=== PATIENT | female | born 1985 | race Caucasian/White ===

== ENCOUNTER 2017-01-14 22:53 | Emergency (ER) | payer MEDICAID ==
[~2017-01-14] VITALS: Ht 162.6 cm; Wt 86.4 kg
[2017-01-14 22:57] VITALS: TEMP 98.1
[2017-01-14] MEDS ORDERED: PRENATAL1 TA7 PO (23:00)
[2017-01-15] MEDS ORDERED: CEPHALEXIN500 M1 PO (01:55)
[2017-01-15 02:24] VITALS: BP 149/90; PULSE 72
== END 2017-01-15 02:24 | disposition home or self-care (01) ==
LOC: COL.ER 22:53
DX: O9A.213 Injury, poisoning and certain other consequences of external causes complicating pregnancy, third trimester (principal); S81.821A Laceration with foreign body, right lower leg, initial encounter; W22.8XXA Striking against or struck by other objects, initial encounter; Y92.830 Public park as the place of occurrence of the external cause; Z3A.36 36 weeks gestation of pregnancy
CPT/HCPCS: J0690

== ENCOUNTER 2017-01-30 22:50 | Inpatient (IN) | payer MEDICAID ==
[~2017-01-30] VITALS: Ht 162.6 cm; Wt 90.5 kg
[~2017-01-30 22:50] MED LIST: CEPHALEXIN500 M1 PO; PRENATAL1 TA7 PO
[2017-01-30 22:57] VITALS: TEMP 97.6
[2017-01-30 23:00] VITALS: BP 148/94; PULSE 66; TEMP 97.6
[2017-01-30 23:15] VITALS: BP 186/88; PULSE 56
[2017-01-30 23:30] VITALS: BP 134/85; PULSE 63
[2017-01-30 23:45] VITALS: BP 157/86; PULSE 59
[2017-01-31] VITALS (17 sets, daily range): BP systolic 120–170; BP diastolic 60–88; PULSE 57–105; TEMP 97.2–98.7
[2017-01-31 00:27] LABS: BASO # 0.1 (0.0-0.2); BASO % 0.4 % (0.0-2.0); EOS # 0.1 (0.0-0.7); EOS % 0.7 % (0-4.0); GRAN # 10.2 (1.4-6.5); GRAN % 79.5 % (42.2-75.2); HEMOGLOBIN 12.2 g/dl (12.5-16.0); LYMPH # 1.9 (1.2-3.4); LYMPH % 14.7 % (20.0-51.0); MEAN CELL VOLUME 87 fl (80.0-100.0); MEAN CORPUSCULAR HEMOGLOBIN 31 pg (27.0-31.0); MEAN CORPUSCULAR HGB CONC 36 g/dl (33.0-37.0); MEAN PLATELET VOLUME 10.6 fl (7.4-10.4); MONO # 0.5 (0.1-0.6); MONO % 4.1 % (1.7-9.3); PLATELET COUNT 176 K/mm3 (130-400); RED BLOOD COUNT 3.88 M/mm3 (4.10-5.30); REDCELL DISTRIBUTION WIDTH-CV 12.5 % (11.5-14.5); WHITE BLOOD COUNT 12.8 K/mm3 (4.8-10.8)
[2017-01-31 00:30] LABS: HEMATOCRIT 33.8 % (37.0-47.0)
[2017-01-31 00:36] LABS: ADJUSTED CALCIUM 9.9 mg/dL (8.4-10.2); ALBUMIN 3.6 gm/dL (3.5-5.0); BILIRUBIN,TOTAL 0.5 mg/dL (0.0-1.0); CALCIUM 9.6 mg/dL (8.4-10.2); CREATININE, serum 0.76 mg/dL (0.52-1.25); POTASSIUM 3.7 mmol/L (3.4-5.0); TOTAL PROTEIN 6.8 gm/dL (6.4-8.2)
[2017-01-31] MEDS ORDERED: MOTRIN 800800 MG/TAB PO (10:34)
[2017-02-01 09:30] VITALS: BP 134/85; PULSE 75; TEMP 98.2
== END 2017-02-01 13:20 | disposition home or self-care (01) | DRG 775 ==
LOC: LDRO 22:50 → LDR 23:20 → OB 23:20
PROVIDERS: Obstetrics & Gynecology
PROC: 10E0XZZ Delivery of Products of Conception, External Approach (ICD-10-PCS; principal; 2017-01-31)
DX: O76 Abnormality in fetal heart rate and rhythm complicating labor and delivery (principal); Z3A.38 38 weeks gestation of pregnancy; Z37.0 Single live birth
CPT/HCPCS: J2590

== ENCOUNTER → 2020-06-01 | Outpatient (CLI) | payer MEDICAID ==
[~2020-06-01] MED LIST changes: +MOTRIN 800800 MG/TAB PO
== END ==
LOC: ZCOL.LAB 14:24
DX: R05 Cough (principal); R09.81 Nasal congestion; Z20.828 Contact with and (suspected) exposure to other viral communicable diseases